=== PATIENT | male | born 1940 | race Caucasian/White ===

== ENCOUNTER 2016-11-06 06:54 | Day surgery (SDC) | payer MEDICARE, BC ==
[2016-11-06] MEDS ORDERED: Propofol 200 MG/20 ML SDV ONE (07:10)
[2016-11-06] MEDS ORDERED: fentaNYL 100 MCG/2 ML SDV ONE (07:10)
[2016-11-06] MEDS ORDERED: Midazolam 1 MG/ML 2 ML SDV ONE (07:10)
[2016-11-06] MEDS ORDERED: Dextrose 5%-Lactated Ringers 1,000 ML IV SCH (07:30)
[2016-11-06] MEDS ORDERED: Glycopyrrolate 0.2 MG/ML 2 ML SYRINGE IVPUSH ONE (07:30)
[2016-11-06] MEDS ORDERED: Pantoprazole 40 MG Vial IVPUSH ONE (09:40)
[2016-11-06 10:21] VITALS: BP 131/74
--- NOTE | 2016-11-12 14:32 | OR ---
DATE OF PROCEDURE: 11/06/2016 PREOPERATIVE DIAGNOSIS: Probable gastroesophageal reflux disease. POSTOPERATIVE DIAGNOSES: 1. Ulcerated gastroesophageal reflux disease associated with a moderate-sized hiatal hernia. 2. Erosive gastritis and duodenitis. OPERATIVE PROCEDURE: Esophagogastroduodenoscopy with, 1. Biopsies of the antrum for CLOtest. 2. Biopsies of the esophagogastric junction for histologic evaluation. INDICATIONS FOR PROCEDURE: This is a 76-year-old presenting with some increasing upper abdominal pain along with some heartburn-type symptoms. He is not presently on any antisecretory medication. Plan is to proceed with an upper GI endoscopy with biopsies as indicated. Potential risks including bleeding and perforation were discussed, and the patient wishes to proceed. DETAILS OF PROCEDURE: The patient was taken to the operating room and placed in a left lateral decubitus position. IV sedation was administered, after which the upper GI endoscope was passed orally through the length of the esophagus into the stomach with retroflexion view of the fundus, thereafter through the pyloric channel and into the proximal duodenum. The patient has been experiencing some dysphagia referable to the laryngopharyngeal area. There is no obstruction in this area. There was some redness particularly in the pyriform sinuses suggestive of reflux disease. As one passed into the esophagus and body, it was unremarkable, but at the EG junction, there was a roughly 3-4 cm hernia and quite active reflux disease with 3 linear ulcers extending up to around 3 cm above the upper gastric folds. There was no plaquing or suggestion of neoplasia and there was no stricture present. Within the stomach, there was some erosive gastritis with some tiny erosions in the antrum covered with some fibrinous exudate. The proximal duodenum also was somewhat edematous and inflamed-appearing beyond the duodenal bulb, the duodenum was normal to the level of the junction of the third and fourth portions. At this point, biopsies were obtained from the antrum and sent for CLOtest for H. pylori. Multiple biopsies were obtained from the gastroesophageal junction focusing on the areas of ulceration, possible Long's esophagus. Minimal bleeding from the biopsy sites was seen and the procedure then concluded. PLAN: The plan will be to have the patient begin Protonix 40 mg daily #30, will be called in with refill x1 year and he will also be given Protonix 40 mg IV in the recovery room. I suspect his dysphagia symptoms are related to the reflux disease and hopefully will improve with control of the gastroesophageal reflux disease. We will see him back in 1 week for recheck. If the CLOtest is positive, he will be contacted and one of the anti H. pylori regimens initiated. Deandre Teran MD /[id number]
== END 2016-11-06 10:35 | disposition home or self-care (01) ==
LOC: JP.SDS 06:54
PROVIDERS: ATTEND Surgery
DX: K22.711 Barrett's esophagus with high grade dysplasia (principal); F41.9 Anxiety disorder, unspecified; F32.9 Major depressive disorder, single episode, unspecified; K44.9 Diaphragmatic hernia without obstruction or gangrene; K25.9 Gastric ulcer, unspecified as acute or chronic, without hemorrhage or perforation; K29.00 Acute gastritis without bleeding; K29.80 Duodenitis without bleeding; Z79.899 Other long term (current) drug therapy
CPT/HCPCS: 43239; 87081; 88305; C9113; J2250; J2704; J3010; J7042

== ENCOUNTER 2016-11-20 06:11 | Day surgery (SDC) | payer MEDICARE, BC ==
[2016-11-20] MEDS ORDERED: Albuterol/Ipratropium 3.0-0.5 MG/3 ML Neb Soln NEB ONE (07:00)
[2016-11-20] MEDS ORDERED: fentaNYL 100 MCG/2 ML SDV ONE (07:14)
[2016-11-20] MEDS ORDERED: Midazolam 1 MG/ML 2 ML SDV ONE (07:14)
[2016-11-20] MEDS ORDERED: Succinylcholine/Normal Saline 200 MG/10 ML Syringe ONE (07:15)
[2016-11-20] MEDS ORDERED: Ondansetron 4 MG/2 ML SDV ONE (07:15)
[2016-11-20] MEDS ORDERED: Dexamethasone 4 MG/ML SDV ONE (07:15)
[2016-11-20] MEDS ORDERED: Propofol 200 MG/20 ML SDV ONE (07:15)
[2016-11-20] MEDS ORDERED: Dextrose 5%-Lactated Ringers 1,000 ML IV SCH (07:30)
[2016-11-20] MEDS ORDERED: Acetylcysteine 600 MG, Water For Injection,Sterile 57 ML ONE ×2 (07:30)
[2016-11-20] MEDS ORDERED: Alum Hydrox/Mag Hydrox/Simeth 360 ML, Lidocaine 2% 60 ML PO SCH ×2 (09:45)
[2016-11-20 10:37] VITALS: BP 123/73
--- NOTE | 2016-12-06 14:30 | OR ---
DATE OF PROCEDURE: 11/20/2016 PREOPERATIVE DIAGNOSIS: Long's's esophagus with high-grade dysplasia. POSTOPERATIVE DIAGNOSIS: Long's's esophagus with high-grade dysplasia. OPERATIVE PROCEDURE: Upper gastrointestinal endoscopy with radiofrequency ablation of Long's esophagus (39833). ANESTHESIA: General. INDICATION FOR PROCEDURE: This is a 76-year-old recently presenting with some symptoms of dysphagia, upper GI endoscopy was performed, which showed a quite active gastroesophageal reflux disease and biopsy which showed Long's esophagus with high-grade dysplasia. No overt invasive malignancy was seen on the biopsies. The plan will be to proceed with an upper GI endoscopy and radiofrequency ablation of the Long's esophagus. We will recheck for any plaque-like lesions that might need some additional focused biopsies. Potential risks of the procedure including bleeding and perforation, and the unusual possibility that a invasive malignancy may be present and not adequately treated by the procedure today were gone over and the patient wishes to proceed. DESCRIPTION OF PROCEDURE: The patient was taken to the operating room, after general endotracheal anesthesia was induced, placed in a left lateral decubitus position. Following this, the upper GI endoscope was passed orally through the length of the esophagus into the stomach with retroflexion view of the fundus, and thereafter through the pylorus and into the proximal duodenum. The Long's esophagus was noted to be clinically somewhat improved in terms of the overall esophagitis present. Based on the patient recent starting on some Protonix, the area of Long's esophagus was examined and there were no plaque-like suspicious areas identified. The top of the gastric folds were then measured at 40 cm and top of the intestinal metaplasia at 35 cm from the incisors. The distal esophagus was irrigated with Mucomyst and this was then evacuated. Guidewire was then placed and the endoscope then removed and the sizing balloon was then placed over the guidewire and the sizing balloon was then checked at 28-36 cm. The sizing balloon lead to the decision to proceed with a 28 cm ablation catheter. The sizing balloon was then removed and the ablation catheter was then placed down to a point just above the start of the Long's esophagus. Along this an upper GI endoscope was then passed and this was then confirmed to be appropriately located with there being a small overlap of normal-appearing mucosa at the upper end of the ablation catheter. This was then inflated, suctioned held, and the area ablated. This was then continued downwards until the end of the esophagus, i.e., the upper gastric folds were then corroborated with the ablation. Following this, the guidewire was removed and the cleaning cap was then placed on the end of the gastroscope which was then placed and the coagulated tissue was then scraped off the area of the ablation. The ablation process was then repeated, because of the high-grade dysplasia, the energy density on this case was set at 12 cm sq. Following this, the area was examined and the above procedure was concluded with removal of the guidewire, ablation catheter, and gastroscope at that point. The patient was taken to the recovery room in satisfactory condition. Deandre Teran MD /[id number]
== END 2016-11-20 10:35 | disposition home or self-care (01) ==
LOC: JP.SDS 06:11
PROVIDERS: ATTEND Surgery
DX: K22.711 Barrett's esophagus with high grade dysplasia (principal); K21.9 Gastro-esophageal reflux disease without esophagitis; Z98.890 Other specified postprocedural states
CPT/HCPCS: 36415; 43270; 80053; 83735; 84100; 85027; A9270; C1713; J0131; J1100; J2250; J2405; J2704; J3010; J7042; J7620

== ENCOUNTER 2016-12-31 06:59 | Day surgery (SDC) | payer MEDICARE, BC ==
[2016-12-31] MEDS ORDERED: Propofol 200 MG/20 ML SDV ONE ×2 (07:29→08:56)
[2016-12-31] MEDS ORDERED: fentaNYL 100 MCG/2 ML SDV ONE (07:29)
[2016-12-31] MEDS ORDERED: Midazolam 1 MG/ML 2 ML SDV ONE (07:29)
[2016-12-31] MEDS ORDERED: Dextrose 5%-Lactated Ringers 1,000 ML IV SCH (08:00)
[2016-12-31] MEDS ORDERED: Rocuronium 50 MG/5 ML Vial ONE ×2 (08:25→08:56)
[2016-12-31] MEDS ORDERED: Acetylcysteine 600 MG, Water For Injection,Sterile 57 ML ONE ×2 (08:30)
[2016-12-31] MEDS ORDERED: Dexamethasone 4 MG/ML SDV ONE (08:56)
[2016-12-31] MEDS ORDERED: Ondansetron 4 MG/2 ML SDV ONE (08:56)
[2016-12-31] MEDS ORDERED: Neostigmine Methylsulfate 1 MG/ML 5 ML Syringe ONE (08:56)
[2016-12-31] MEDS ORDERED: Albuterol/Ipratropium 3.0-0.5 MG/3 ML Neb Soln NEB ONE (09:00)
[2016-12-31] MEDS ORDERED: Glycopyrrolate 0.2 MG/ML 2 ML SYRINGE IVPUSH ONE (09:00)
[2016-12-31 10:45] VITALS: BP 129/74
[2016-12-31] MEDS ORDERED: Alum Hydrox/Mag Hydrox/Simeth 360 ML, Lidocaine 2% 60 ML PO SCH ×2 (11:00)
--- NOTE | 2017-01-08 08:22 | OR ---
DATE OF PROCEDURE: 12/31/2016 PREOPERATIVE DIAGNOSIS: Long's esophagus with high-grade dysplasia. POSTOPERATIVE DIAGNOSIS: Long's esophagus with high-grade dysplasia. OPERATIVE PROCEDURE: Upper gastrointestinal endoscopy with radiofrequency ablation of Long's esophagus ([id number]). ANESTHESIA: IV sedation. INDICATIONS FOR PROCEDURE: This is a 76-year-old recently noted to have Long's esophagus with high-grade dysplasia. The patient, about 5 weeks ago, had a radiofrequency ablation of that and is undergoing repeat procedure today. Potential risks including bleeding, perforation, stricturing were reviewed, as well as a small possibility that we are dealing with a more advanced malignancy were all gone over, and the patient wishes to proceed. DESCRIPTION OF PROCEDURE: The patient was taken to the operating room and placed in a left lateral decubitus position. IV sedation was administered, after which the upper GI endoscope was passed orally through the length of the esophagus, into the stomach once again, and through the pyloric channel into the duodenum. The patient was noted to have less in the way of gastritis than previously noted. The area of the Long's esophagus was still visible, but less marked than previously noted. The distal esophagus was irrigated with Mucomyst, and that fluid was then removed. The top of the gastric folds was measured at 40 cm, and the top of the Long's esophagus at this time was noted to be 36 cm from the incisors. A sizing balloon catheter was then started at 28 cm and extended down to 40 cm, and based on this, an 18 mm catheter was selected. Over the guidewire then, the Barrx RFA catheter was placed, a 360-degree balloon catheter was selected, given the diffuseness of the Long esophagus. Initially, 2 ablations were obtained, given the high-grade dysplasia, these were done with 12 joules per cm2 intensity. Following this, the gastroscope and catheter were removed and the ablated scar was then scraped off and delivered down into the stomach. Guidewire was then once again placed, and over this then, 2 additional firings of the RFA catheter were undertaken, and at that point, the procedure was concluded. There would be good coverage of the area of the Long's esophagus during both of the RFA administrations. The patient tolerated the procedure well and was taken to the recovery room in satisfactory condition. The plan will be to repeat the RFA procedure 1 more time, probably in around 5 weeks postoperatively, and at that point, after an additional month or so, we will then do an endoscopy for biopsies just to confirm that the Long's esophagus had been eliminated. Deandre Teran MD /[id number]
== END 2016-12-31 11:16 | disposition home or self-care (01) ==
LOC: JP.SDS 06:59
PROVIDERS: ATTEND Surgery
DX: K22.711 Barrett's esophagus with high grade dysplasia (principal); J44.9 Chronic obstructive pulmonary disease, unspecified; K21.9 Gastro-esophageal reflux disease without esophagitis; M19.90 Unspecified osteoarthritis, unspecified site; Z86.19 Personal history of other infectious and parasitic diseases
CPT/HCPCS: 36415; 43270; 80048; 83735; 84100; 85027; A9270; C1713; J1100; J2250; J2405; J2704; J3010; J7042

== ENCOUNTER 2017-02-12 05:34 | Day surgery (SDC) | payer MEDICARE, BC ==
[2017-02-12] MEDS ORDERED: Dextrose 5%-Lactated Ringers 1,000 ML IV SCH (06:30)
[2017-02-12] MEDS ORDERED: Propofol 200 MG/20 ML SDV ONE (07:07)
[2017-02-12] MEDS ORDERED: fentaNYL 100 MCG/2 ML SDV ONE (07:07)
[2017-02-12] MEDS ORDERED: Midazolam 1 MG/ML 2 ML SDV ONE (07:07)
[2017-02-12] MEDS ORDERED: Glycopyrrolate 0.2 MG/ML 2 ML SDV IVPUSH ONE (07:15)
[2017-02-12] MEDS ORDERED: ceFAZolin 2 GM in Premix Bag 1 BAG IV ONE (07:15)
[2017-02-12] MEDS ORDERED: Acetylcysteine 600 MG, Water For Injection,Sterile 57 ML ONE ×2 (07:30)
[2017-02-12] MEDS ORDERED: Succinylcholine 200 MG/10 ML MDV ONE (08:03)
[2017-02-12] MEDS ORDERED: Lidocaine 2% 60 ML, Alum Hydrox/Mag Hydrox/Simeth 360 ML PO PRN ×2 (09:18)
[2017-02-12 09:38] VITALS: BP 149/64
--- NOTE | 2017-02-12 22:10 | OR ---
DATE OF PROCEDURE: 02/12/2017 PREOPERATIVE DIAGNOSIS: History of Long esophagus with high-grade dysplasia. POSTOPERATIVE DIAGNOSIS: History of Long esophagus with high-grade dysplasia. OPERATIVE PROCEDURE: Upper GI endoscopy with radiofrequency ablation of Long esophagus. ANESTHESIA: General. INDICATIONS FOR PROCEDURE: This 76-year-old a few months ago was noted to have Long esophagus with high-grade dysplasia. He has undergone 2 sessions of radiofrequency ablation and is to undergo the third at this time. Potential risks including bleeding and perforation were discussed, and the patient wishes to proceed. DETAILS OF PROCEDURE: The patient was taken to the operating room and after general endotracheal anesthetic was induced, the upper GI endoscope was then passed orally through the length of the esophagus and into the stomach. The area of Long esophagus was then mapped out. The patient did have some upward extension of the gastroesophageal junction mucosal line above the upper gastric folds. Above that where he previously had more aggressive appearing Long's esophagus, there was hint of slight redness. Given this, the entire area was felt to be best treated once again and this ended up being an 8 cm segment from the upper gastric fold up into the esophagus. Using the sequential balloon RFA ablation device, a total of 6 ablation all of which were 10 joules per sq cm were placed three on each segment ranging between 33 and 41 cm from the incisors between the 1st and 2nd ablations, the eschar redness scraped off and upon completion of the 2nd ablation, the area was inspected and found to be satisfactorily covered. The scope was then withdrawn. There were no evident complications. The patient was taken to the recovery room in satisfactory condition. Deandre Teran MD /[id number]
== END 2017-02-12 10:21 | disposition home or self-care (01) ==
LOC: JP.SDS 05:34
PROVIDERS: ATTEND Surgery
DX: K22.711 Barrett's esophagus with high grade dysplasia (principal); Z79.899 Other long term (current) drug therapy
CPT/HCPCS: 36415; 43270; 80048; 85027; A9270; C1713; C1886; J0330; J0690; J2250; J2704; J3010; J7042; J3490

== ENCOUNTER 2017-05-21 05:24 | Day surgery (SDC) | payer MEDICARE, BC ==
[2017-05-21] MEDS ORDERED: Dextrose 5%-Lactated Ringers 1,000 ML IV SCH (06:00)
[2017-05-21] MEDS ORDERED: Acetaminophen 500 MG Tab PO ONE (06:00)
[2017-05-21] MEDS ORDERED: Albuterol/Ipratropium 3.0-0.5 MG/3 ML Neb Soln NEB ONE (06:45)
[2017-05-21] MEDS ORDERED: fentaNYL 250 MCG/5 ML SDV ONE (06:53)
[2017-05-21] MEDS ORDERED: Rocuronium 50 MG/5 ML Vial ONE (06:53)
[2017-05-21] MEDS ORDERED: Propofol 200 MG/20 ML SDV ONE (06:53)
[2017-05-21] MEDS ORDERED: Glycopyrrolate 0.2 MG/ML 2 ML SDV IVPUSH ONE (07:00)
[2017-05-21] MEDS ORDERED: Neostigmine Methylsulfate 1 MG/ML 5 ML Syringe ONE (07:11)
[2017-05-21] MEDS ORDERED: Glycopyrrolate 0.2 MG/ML 5 ML MDV ONE (07:11)
[2017-05-21] MEDS ORDERED: Alum Hydrox/Mag Hydrox/Simeth 360 ML, Lidocaine 2% 60 ML PO SCH ×2 (07:30)
[2017-05-21] MEDS ORDERED: Acetylcysteine 600 MG, Water For Injection,Sterile 57 ML ONE ×2 (07:30)
[2017-05-21 09:04] VITALS: BP 136/69
--- NOTE | 2017-05-26 15:18 | OR ---
DATE OF PROCEDURE: 05/21/2017 PREOPERATIVE DIAGNOSIS: History of Long esophagus with high-grade dysplasia, status post 3 previous radiofrequency ablations. POSTOPERATIVE DIAGNOSIS: Possible persistent Long esophagus. OPERATIVE PROCEDURES: Esophagogastroduodenoscopy with; 1. Biopsies of areas with possible persistent Long esophagus (37462). 2. Radiofrequency ablation of distal esophagus ([id number]). ANESTHESIA: General. INDICATION FOR PROCEDURE: The patient presented with some gastroesophageal reflux symptoms and biopsy showed Long's esophagus with high-grade dysplasia. The patient had undergone 3 radiofrequency ablations and at this point, is to undergo a repeat upper endoscopy. If this area is suspicious for persistent Long esophagus, biopsies will be obtained and if that is the case, then we would also then proceed with radiofrequency ablation once again. Potential risks of the procedure including bleeding and perforation, stricture formation and such were reviewed, and the patient wishes to proceed. DETAILS OF PROCEDURE: The patient was taken to the operating room and placed in a left lateral decubitus position. After a general endotracheal anesthetic had been induced, the upper GI endoscope was passed orally and the landmarks of the top of the gastric folds and top of the areas of intestinal metaplasia were identified. There were some scattered areas suggestive of some possible persistent Long esophagus, i.e. the appearance of columnar- type mucosa. The esophagogastric junction was measured at 40 cm and the highest of the areas of possible persistent Long's were noted at 38 cm. Biopsies in these areas were then obtained and no bleeding from the biopsy site was seen. The area was then irrigated with Mucomyst solution, which was then largely aspirated. The radiofrequency ablation catheter was then positioned such that the tip would lie just beyond the esophagogastric junction and then up into the esophagus. Following this, a gastroscope was placed to visualize that area. The initial ablation was then accomplished using 10 joules per cm ablation. The guidewire and ablation catheter along with the gastroscope were then removed. The scar over the area of ablation was then scraped off and following this, one additional ablation and this going 1 cm higher, as the initial ablation appeared to go a little bit more into the stomach than was necessary. Once this was completed, the scope and ablation catheter along with the wire were removed. The gastroscope was placed once again. There appeared to be good areas of ablation of all the areas of concern, without complications. The procedure was then concluded. The patient was taken to the recovery room in a satisfactory condition. Deandre Teran MD /[id number]
== END 2017-05-21 09:23 | disposition home or self-care (01) ==
LOC: JP.SDS 05:24
PROVIDERS: ATTEND Surgery
DX: K22.70 Barrett's esophagus without dysplasia (principal); J44.9 Chronic obstructive pulmonary disease, unspecified; M19.90 Unspecified osteoarthritis, unspecified site; K21.9 Gastro-esophageal reflux disease without esophagitis
CPT/HCPCS: 36415; 43239; 43270; 80048; 85027; 88305; A9270; C1713; C1886; J2704; J2710; J3010; J7042; J7620; J3490

== ENCOUNTER 2017-07-16 05:50 | Day surgery (SDC) | payer MEDICARE, BC ==
[2017-07-16] MEDS ORDERED: Acetaminophen 500 MG Tab PO ONE (06:00)
[2017-07-16] MEDS ORDERED: Dextrose 5%-Lactated Ringers 1,000 ML IV SCH (06:30)
[2017-07-16] MEDS ORDERED: Neostigmine Methylsulfate 1 MG/ML 5 ML Syringe ONE (07:00)
[2017-07-16] MEDS ORDERED: Succinylcholine 200 MG/10 ML MDV ONE (07:00)
[2017-07-16] MEDS ORDERED: Propofol 200 MG/20 ML SDV ONE (07:00)
[2017-07-16] MEDS ORDERED: Glycopyrrolate 0.2 MG/ML 5 ML MDV ONE (07:00)
[2017-07-16] MEDS ORDERED: Ondansetron 4 MG/2 ML SDV ONE (07:00)
[2017-07-16] MEDS ORDERED: Albuterol/Ipratropium 3.0-0.5 MG/3 ML Neb Soln NEB ONE (07:00)
[2017-07-16] MEDS ORDERED: Dexamethasone 4 MG/ML SDV ONE (07:00)
[2017-07-16] MEDS ORDERED: Rocuronium 50 MG/5 ML Vial ONE (07:00)
[2017-07-16] MEDS ORDERED: fentaNYL 100 MCG/2 ML SDV ONE (07:01)
[2017-07-16] MEDS ORDERED: ceFAZolin 2 GM in Premix Bag 1 BAG IV ONE (07:30)
[2017-07-16] MEDS ORDERED: Acetylcysteine 600 MG, Water For Injection,Sterile 57 ML ONE ×2 (07:45)
[2017-07-16] MEDS ORDERED: Alum Hydrox/Mag Hydrox/Simeth 360 ML, Lidocaine 2% 60 ML PO SCH ×2 (07:45)
[2017-07-16 08:37] VITALS: BP 136/78
--- NOTE | 2017-07-21 13:19 | OR ---
DATE OF PROCEDURE: 07/16/2017 PREOPERATIVE DIAGNOSIS: History of Long esophagus with high-grade dysplasia, status post RFA treatment x3. POSTOPERATIVE DIAGNOSES: 1. History of Long esophagus with high-grade dysplasia, status post RFA treatment x3. 2. No evident persistent Long esophagus. OPERATIVE PROCEDURE: Upper GI endoscopy with biopsies of esophagogastric junction. INDICATION FOR PROCEDURE: The patient presented last winter with a picture of a Long esophagus with biopsies showing high-grade dysplasia. The patient has undergone 3 treatments with radiofrequency ablation. The plan is to proceed with an upper GI endoscopy with biopsies as indicated as well as any additional Long esophagus that might be seen and likewise be treated. Potential risks including bleeding and perforation were discussed, and the patient wishes to proceed. DETAILS OF PROCEDURE: The patient was taken to the operating room and after general endotracheal anesthesia was induced, he was placed in the left lateral decubitus position. IV sedation was administered, after which the upper GI endoscope was passed orally through the length of the esophagus and into the stomach with retroflexion view of the fundus and thereafter through the pyloric channel and into the proximal duodenum. On viewing the area of the esophagogastric junction, it appeared there was no columnar-type mucosa above the gastric folds. Within one of the gastric folds, there was a small isolated island of columnar-type mucosa, but otherwise no obvious Long esophagus based on the location of the columnar mucosa per se. Remainder of the gastric and duodenal exams were unremarkable. At this point, biopsy from the single island was obtained, essentially removing the entire area, and that was sent as a separate specimen and then multiple biopsies circumferentially around the esophagogastric junction, tearing the columnar-type mucosa to look for any signs of persistent Long esophagus-type mucosa was undertaken. Minimal bleeding from the biopsy sites was seen, and the procedure then concluded. If today's exam does not show any Long esophagus, we will likely proceed with a repeat endoscopy in 3 months. The patient will be continued on the Protonix. Deandre Teran MD /[id number]
== END 2017-07-16 09:05 | disposition home or self-care (01) ==
LOC: JP.SDS 05:50
PROVIDERS: ATTEND Surgery
DX: K31.89 Other diseases of stomach and duodenum (principal); J44.9 Chronic obstructive pulmonary disease, unspecified; K21.9 Gastro-esophageal reflux disease without esophagitis
CPT/HCPCS: 36415; 43239; 80053; 83735; 84100; 85027; A9270; J0330; J0690; J1100; J2405; J2704; J3010; J7042; J7620; 88305; J2710

== ENCOUNTER 2017-09-10 05:59 | Day surgery (SDC) | payer MEDICARE, BC ==
[2017-09-10] MEDS ORDERED: Acetaminophen 500 MG Tab PO ONE (06:00)
[2017-09-10] MEDS ORDERED: Dextrose 5%-Lactated Ringers 1,000 ML IV SCH (06:30)
[2017-09-10] MEDS ORDERED: Albuterol/Ipratropium 3.0-0.5 MG/3 ML Neb Soln NEB ONE (07:00)
[2017-09-10] MEDS ORDERED: ceFAZolin 2 GM in Premix Bag 1 BAG IV ONE (07:15)
[2017-09-10] MEDS ORDERED: fentaNYL 100 MCG/2 ML SDV ONE (07:26)
[2017-09-10] MEDS ORDERED: Succinylcholine 200 MG/10 ML MDV ONE (07:27)
[2017-09-10] MEDS ORDERED: Glycopyrrolate 0.2 MG/ML 5 ML MDV ONE ×2 (07:27→07:43)
[2017-09-10] MEDS ORDERED: Propofol 200 MG/20 ML SDV ONE (07:27)
[2017-09-10] MEDS ORDERED: Ondansetron 4 MG/2 ML SDV ONE (07:27)
[2017-09-10] MEDS ORDERED: Neostigmine Methylsulfate 1 MG/ML 5 ML Syringe ONE ×2 (07:27→07:43)
[2017-09-10] MEDS ORDERED: Dexamethasone 4 MG/ML SDV ONE (07:27)
[2017-09-10] MEDS ORDERED: Rocuronium 50 MG/5 ML Vial ONE (07:28)
[2017-09-10] MEDS ORDERED: Acetylcysteine 600 MG, Water For Injection,Sterile 57 ML ONE ×2 (07:30)
[2017-09-10 09:16] VITALS: BP 134/74
--- NOTE | 2017-09-14 22:09 | OR ---
DATE OF PROCEDURE: 09/10/2017 PREOPERATIVE DIAGNOSIS: History of Long's esophagus with high-grade dysplasia. POSTOPERATIVE DIAGNOSIS: History of Long's esophagus with high-grade dysplasia. PROCEDURE: Upper GI endoscopy with radiofrequency ablation of Long's esophagus ([id number]). ANESTHESIA: General. INDICATION FOR PROCEDURE: The patient is a 77-year-old, status post a history of Long's esophagus with high-grade dysplasia, and status post several RFA sessions. The most recent bowel biopsies did show some Long's esophagus, this time without dysplasia. Given the history, the plan is to proceed with a repeat RFA to try to completely eliminate the Long's esophagus. Potential risks of the procedure including bleeding and perforation were discussed, and the patient wishes to proceed. DETAILS OF PROCEDURE: The patient was taken to the operating room and placed in a supine position. After general endotracheal anesthesia was induced, he was converted to a left lateral decubitus position. The upper GI endoscope was passed orally through the length of the esophagus. The landmarks were identified as marked on the Long's esophagus worksheet and the distal esophageus was irrigated with Mucomyst solution. This was then evacuated. Over this, then a guidewire was placed, and the Barrx 360-degree RFA balloon catheter was inserted at the position of the upper end of the visualized Long's esophagus and the RFA completed. This was then moved downward slightly roughly 1 cm overlap from the initial ablation and once again inflated and ablation accomplished. This included the area after the gastric folds. The catheter was then removed and the eschar scraped off the esophagus and the ablation sequence repeated, and at that point, no further problems were noted. The gastroscope wire and Barrx RFA balloon catheter were all removed and the procedure concluded. There were no apparent complications. Deandre Teran MD /[id number]
== END 2017-09-10 09:27 | disposition home or self-care (01) ==
LOC: JP.SDS 05:59
PROVIDERS: ATTEND Surgery
DX: K22.711 Barrett's esophagus with high grade dysplasia (principal); J44.9 Chronic obstructive pulmonary disease, unspecified
CPT/HCPCS: 36415; 80048; 83735; 84100; 85027; A9270-GY; C1713; C1886; J0330; J0690; J1100; J2405; J2704; J2710; J3010; J7042; J7620

== ENCOUNTER 2018-01-06 05:25 | Day surgery (SDC) | payer MEDICARE ==
[2018-01-06] MEDS ORDERED: Dextrose 5%-Lactated Ringers 1,000 ML IV SCH (05:45)
[2018-01-06] MEDS ORDERED: fentaNYL 100 MCG/2 ML SDV ONE (06:43)
[2018-01-06] MEDS ORDERED: Propofol 200 MG/20 ML SDV ONE (06:43)
[2018-01-06] MEDS ORDERED: Glycopyrrolate 0.2 MG/ML 2 ML SDV IVPUSH ONE (07:15)
[2018-01-06 08:32] VITALS: BP 151/90
--- NOTE | 2018-01-13 13:36 | OR ---
DATE OF PROCEDURE: 01/06/2018 PREOPERATIVE DIAGNOSIS: History of Long's esophagus with high-grade dysplasia, status post radiofrequency ablation. POSTOPERATIVE DIAGNOSES: 1. History of Long's esophagus with high-grade dysplasia, status post radiofrequency ablation. 2. Mild antral gastritis. OPERATIVE PROCEDURES: Esophagogastroduodenoscopy with: 1. Biopsies of esophagogastric junction. 2. Biopsies of antrum for CLOtest. ANESTHESIA: IV sedation. INDICATION FOR PROCEDURE: The patient is status post previous ablation treatment of his Long's esophagus with high-grade dysplasia. More recent biopsies showed some persistent non-dysplastic Long's esophagus. We elected to treat that with additional course of radiofrequency ablation and is to undergo a surveillance endoscopy for biopsies of the area of colonic mucosa to rule out any persistent Long's esophagus at this time. Potential risks including bleeding and perforation were discussed, and the patient wishes to proceed. DETAILS OF PROCEDURE: The patient was taken to the operating room and placed in a left lateral decubitus position. IV sedation was administered, after which the upper GI endoscope was passed orally through the length of the esophagus and into the stomach with retroflexion view of the fundus, thereafter through the pyloric channel into the junction of the third and fourth portions of the duodenum. Findings included normal hypopharynx, larynx, upper shaft sphincter and esophageal body. At the EG junction, the patient was noted to have some upward extension of the colonic mucosa above the level of the gastric folds for approximately 1 to 1.5 cm. There were no remaining islands of type columnar mucosa noted and there is no cracking or gross evidence of neoplasia. No stricture noted at the esophagogastric junction. Remainder of the stomach showed some mild antral gastritis. The visualized portion of the pylorus and duodenum were unremarkable. At this point, biopsies were obtained from the antrum and sent for CLOtest for H pylori. Multiple biopsies were obtained focusing on the areas of columnar mucosa and the distal esophagus. No bleeding from the biopsy sites was seen and the procedure was then concluded. The plan will be to continue the patient on the present proton pump inhibitor treatment. We will contact the patient's regarding the histologic findings, as well as CLOtest. They are going to be moving to [place], [place] and will be picking up followup of the Long's esophagus issue with Gastroenterology staff in that area. Deandre Teran MD /[id number]
== END 2018-01-06 09:03 | disposition home or self-care (01) ==
LOC: JP.SDS 05:25
PROVIDERS: ATTEND Surgery
DX: K22.70 Barrett's esophagus without dysplasia (principal); K20.0 Eosinophilic esophagitis; K29.70 Gastritis, unspecified, without bleeding; J44.9 Chronic obstructive pulmonary disease, unspecified
CPT/HCPCS: 43239; 87081; 88305; J2704; J3010; J3490; J7042